=== PATIENT | male | born 1970 | race Caucasian/White ===

== ENCOUNTER 2016-11-28 07:05 | Emergency (ER) | payer BC ==
[2016-11-28] MEDS ORDERED: SODIUM CHLORIDE FLUSH 0.9% 10 ML SYRINGE IVP ONE (07:41)
[2016-11-28] MEDS ORDERED: SODIUM CHLORIDE 0.9% 1,000 ML IV ONE (07:43)
[2016-11-28] MEDS ORDERED: ONDANSETRON 4 MG/2 ML VIAL IVP STA (07:43)
[2016-11-28] MEDS ORDERED: HYDROmorphone 1 MG/ML SYRINGE IVP STA (07:43)
--- NOTE | 2016-11-28 07:48 | ED Physician Documentation ---
PD HPI ABD PAIN - Stated complaint Stated Complaint: ABD PX - Chief complaint Chief Complaint: Abd Pain - History obtained from History obtained from: Patient, Family - Additional information Additional information: Patient is a 46-year-old male who is otherwise healthy. He does have polyposis of the colon does get regular colonoscopies. This was discovered because of occasional episodes of rectal bleeding. He has not had any problems recently. He is here with a complaint of abdominal pain. Abdominal pain is been present since sometimes standing up makes it better. The pain comes and goes it is described as a sharp sensation which is kind of vague and more on the right and in the lower quadrant of the abdomen. On occasion he is felt nauseous and occasion he has pain that radiates into the right groin area. He has not had a fever chills. There is no chest pain or shortness of breath. He has had palpitations on a couple occasions. He has no complaints of diarrhea or lower urinary symptoms otherwise. He is otherwise healthy. Review of systems: For pertinent positive and negatives in the review of systems please see the history of present illness, otherwise all other systems have been reviewed and are negative. Dragon disclaimer: Parts of this medical record were created using voice recognition technology. Because of the inherent limitations of this system, occasional same sounding word substitutions do occur and persist despite proofreading. Please read the document for context. Review of Systems Constitutional: denies: Fever, Chills GI: reports: Abdominal Pain, Nausea. denies: Abdominal Swelling, Vomiting, Constipation, Diarrhea, Hematemesis, Bloody / black stool : denies: Dysuria, Frequency PD PAST MEDICAL HISTORY - Past Medical History Past Medical History: Yes GI: GERD - Past Surgical History Past Surgical History: Yes General: Cholecystectomy - Present Medications Home Medications: Ambulatory Orders Medication Instructions Recorded Confirmed Omeprazole 20 mg PO 06/05/14 06/05/14 - Allergies Allergies/Adverse Reactions: Allergies Allergy/AdvReac Type Severity Reaction Status Date / Time No Known Drug Allergies Allergy Verified 06/05/14 19:36 - Social History Does the pt smoke?: No Smoking Status: Never smoker Does the pt drink ETOH?: No Does the pt have substance abuse?: No - Immunizations Immunizations are current?: Yes - POLST Patient has POLST: No PD ED PE NORMAL - Vitals Vital signs reviewed: Yes - General General: Alert and oriented X 3, No acute distress, Well developed/nourished - HEENT HEENT: Atraumatic, PERRL, EOMI - Neck Neck: Supple, no meningeal sign, No bony TTP, No adenopathy - Cardiac Cardiac: RRR, No murmur, No gallop, No rub - Respiratory Respiratory: No respiratory distress, Clear bilaterally - Abdomen Abdomen: Normal bowel sounds, Non tender, Non distended, Other (Fairly benign abdominal examination minimal tenderness in the right lower quadrant. Bowel tones normal active no palpable hernias. No rebound tenderness. Aorta does not feel prominent) - Derm Derm: Normal color, Warm and dry, No rash - Extremities Extremities: No deformity, No tenderness to palpate, Normal ROM s pain, No edema - Neuro Neuro: Alert and oriented X 3, No motor deficit Results - Vitals Vitals: Vital Signs - 24 hr 11/28/16 11/28/16 11/28/16 07:05 08:04 09:23 Temperature 36.1 C L 36.3 C L 36.9 C Heart Rate 76 74 72 Respiratory 16 14 14 Rate Blood Pressure 164/109 H 144/104 H 151/96 H O2 Saturation 99 99 99 11/28/16 10:33 Temperature 36.2 C L Heart Rate 73 Respiratory 15 Rate Blood Pressure 150/94 H O2 Saturation 98 Oxygen O2 Source Room air - Labs Labs: Laboratory Tests 11/28/16 11/28/16 11/28/16 07:55 07:55 08:00 WBC 11.0 H RBC 4.77 Hgb 13.9 L Hct 41.5 L MCV 86.9 MCH 29.2 MCHC 33.6 RDW 12.9 Plt Count 272 MPV 7.9 Neut # 8.1 H Lymph # 2.0 [place] # 0.6 Eos # 0.1 Baso # 0.1 Absolute Nucleated RBC 0.00 Nucleated RBCs 0.0 Sodium 137 Potassium 3.7 Chloride 104 Carbon Dioxide 25 Anion Gap 8.0 BUN 13 Creatinine 0.8 Estimated GFR (MDRD) 104 Glucose 104 H Calcium 8.8 Total Bilirubin 1.8 H AST 17 ALT 15 Alkaline Phosphatase 69 Total Protein 7.6 Albumin 4.2 Globulin 3.4 Albumin/Globulin Ratio 1.2 Lipase 24 Urine Color YELLOW Urine Clarity CLEAR Urine pH 7.5 Ur Specific [place] 1.015 Urine Protein NEGATIVE Urine Glucose (UA) NEGATIVE Urine Ketones NEGATIVE Urine Occult Blood NEGATIVE Urine Nitrite NEGATIVE Urine Bilirubin NEGATIVE Urine Urobilinogen 0.2 (NORMAL) Ur Leukocyte Esterase NEGATIVE Ur Microscopic Review NOT INDICATED Urine Culture Comments NOT INDICATED PD MEDICAL DECISION MAKING - ED course Complexity details: reviewed old records, reviewed results, re-evaluated patient ED course: No definitive cause of this patient's abdominal pain was found. Blood work showed elevated bilirubin at 1.6 however there is no evidence of biliary or hepatic pathology. There is no other indication to suggest hemolysis. CT scan of his abdomen was unremarkable. The patient on recheck is doing well without any symptoms. His abdominal exam remains benign. I did look at his kidneys and gallbladder portably with ultrasound in the appeared normal and we did not see any additional abnormalities on CT scan either. At this point in time I am wrecking recommending increasing fiber, fluids, continued observation, follow- up with a physician and recheck bilirubin in 1-2 weeks. Disposition: To home Clinical impression: 1. Right middle and right lower quadrant abdominal pain cause unknown 2. Mild elevation of bilirubin without evidence of hepatic or biliary disease clinically or radiographically Departure - Departure Disposition: 01 Home, Self Care Clinical Impression: Abdominal pain Condition: Good Instructions: ED Abdominal Pain Unkn Cause Follow-Up: Jeff Wilson MD [Primary Care Provider] - Comments: No definite cause for your abdominal pain was found today. Your bilirubin was slightly elevated at 1.6 Mg/dL however there is no evidence of any liver or biliary disease. I do recommend increasing fluids adding additional fiber such as Metamucil for the next several days to see if this improves her symptoms. If not or if you get worse please return for reevaluation and please have your bilirubin checked and 1-2 weeks
[2016-11-28 08:04] LABS: BILIRUBIN,URINE NEGATIVE (NEGATIVE); PH,URINE 7.5 PH (5.0-7.5)
[2016-11-28 08:04] LABS: BASOPHILS # (AUTO) 0.1 10^3/uL (0.0-0.1); BASOPHILS % (AUTO) 1.2 %; EOSINOPHILS # (AUTO) 0.1 10^3/uL (0.0-0.7); EOSINOPHILS % (AUTO) 1.2 %; HCT - HEMATOCRIT 41.5 % (42.0-52.0); HGB - HEMOGLOBIN 13.9 g/dL (14.0-18.0); LYMPHOCYTES % (AUTO) 18.5 %; MEAN CORPUSCULAR HEMOGLOBIN 29.2 pg (27.0-31.0); MEAN CORPUSCULAR HGB CONC 33.6 g/dL (32.0-36.0); MEAN CORPUSCULAR VOLUME 86.9 fL (80.0-94.0); MEAN PLATELET VOLUME 7.9 fL (7.4-11.4); MONOCYTES # (AUTO) 0.6 10^3/uL (0.0-1.0); MONOCYTES % (AUTO) 5.7 %; NEUTROPHILS # (AUTO) 8.1 10^3/uL (1.5-6.6); NEUTROPHILS % (AUTO) 73.4 %; RED BLOOD COUNT 4.77 10^6/uL (4.70-6.10); RED CELL DISTRIBUTION WIDTH 12.9 % (12.0-15.0)
[2016-11-28 08:05] LABS: UA CHARGE (STRIP ONLY) YES; UR CULTURE IF IND NOT INDICATED
[2016-11-28 08:15] LABS: ALBUMIN/GLOBULIN RATIO 1.2 (1.0-2.2); BILIRUBIN,TOTAL 1.8 mg/dL (0.2-1.0); CALCIUM 8.8 mg/dL (8.5-10.3); CREATININE 0.8 mg/dL (0.6-1.2); POTASSIUM 3.7 mmol/L (3.5-5.0); TOTAL PROTEIN 7.6 g/dL (6.7-8.2)
[2016-11-28] MEDS ORDERED: IOPAMIDOL-300 100 ML VIAL IVP ONE (09:10)
--- NOTE | 2016-11-28 09:18 | CT Preliminary Report ---
Exam: CT Abdomen/Pelvis W/ IMPRESSION: 1. No acute focal inflammatory changes or evidence of obstruction identified within the abdomen or pe lvis. 2. Normal appendix. 3. Colonic diverticulosis. [facility] SITE ID: [id number]
--- NOTE | 2016-11-28 09:21 | CT Report ---
EXAM: CT ABDOMEN AND PELVIS EXAM DATE: 11/28/2016 09:11 AM. CLINICAL HISTORY: 3 days R sided ab pain now rmq, rlq tenderness. COMPARISONS: None. TECHNIQUE: Routine helical CT imaging was performed through the abdomen and pelvis. IV contrast: 100 mL Isovue-300. Enteric contrast: No. Reconstructions: Coronal and sagittal. In accordance with CT protocol optimization, one or more of the following dose reduction techniques w ere utilized for this exam: automated exposure control, adjustment of mA and/or KV based on patient s ize, or use of iterative reconstructive technique. FINDINGS: Lung Bases: Unremarkable. Liver: Normal. No masses. Gallbladder/Bile Ducts: Unremarkable. Spleen: Normal. Pancreas: Normal. Adrenal Glands: Normal. Kidneys: Normal. No masses or hydronephrosis. Peritoneal Cavity/Bowel: No bowel obstruction. Colonic diverticulosis. No acute focal inflammatory ch chevy. No discrete collection. No bulky adenopathy. No Free Air. No Free Fluid. Appendix Pancreas Unre markable. Pelvic Organs: Urinary bladder appears unremarkable. A few calcifications of the prostate. Vasculature: No aneurysms or other significant abnormality. Bones: No significant abnormality. Other: None. IMPRESSION: 1. No acute focal inflammatory changes or evidence of obstruction identified within the abdomen or pe lvis. 2. Normal appendix. 3. Colonic diverticulosis. [facility] Referring Provider Line: [phone] SITE ID: [id number]
[2016-11-28 10:34] VITALS: BP 150/94
== END 2016-11-28 10:40 | disposition home or self-care (01) ==
LOC: ED 07:05
DX: R10.31 Right lower quadrant pain (principal); R79.89 Other specified abnormal findings of blood chemistry
CPT/HCPCS: 36415; 74177; 80053; 81003; 83690; 85025; 93005; 96374; 96375; 99284; Q9967; 81001; 87086

== ENCOUNTER 2020-06-23 17:44 | Emergency (ER) | payer BC, OTHER ==
--- NOTE | 2020-06-23 18:08 | ED Physician Documentation ---
History of Present Illness - Stated complaint Stated Complaint: HBP - Chief complaint Chief Complaint: General - History obtained from History obtained from: Patient - Additonal information Additional information: 50-year-old gentleman presents by private vehicle for evaluation of high blood pressure and chest discomfort. He has had very mild discomfort under the left scapula all day today. He doesn't describe it as pain or pressure just very mild. Not associate with shortness of breath, sweats or headache. He went to see his value engineer for this and was noted to be hypertensive. He was also recently diagnosed with a retinal bleed by an instructor business education but no specific referrals or treatment was given. After seeing the value engineer they referred him here for evaluation of hypertension. He denies headaches, shortness of breath, pedal edema, urinary complaints. States that he last had his blood pressure checked maybe a year ago at that time it was "high normal" but he doesn't recommend recall the numbers. Review of Systems Ten Systems: 10 systems reviewed and negative Constitutional: denies: Fever, Chills Eyes: reports: Loss of vision, Decreased vision Cardiac: reports: Chest pain / pressure. denies: Palpitations Respiratory: denies: Dyspnea, Cough PD PAST MEDICAL HISTORY - Past Medical History GI: GERD - Past Surgical History Past Surgical History: Yes General: Cholecystectomy - Present Medications Home Medications: Ambulatory Orders Medication Instructions Recorded Confirmed Omeprazole 20 mg PO DAILY 06/05/14 06/23/20 Lisinopril [Prinivil] 10 mg PO DAILY #90 tablet 06/23/20 - Allergies Allergies/Adverse Reactions: Allergies Allergy/AdvReac Type Severity Reaction Status Date / Time No Known Drug Allergies Allergy Verified 06/05/14 19:36 - Social History Does the pt smoke?: No Smoking Status: Never smoker Does the pt drink ETOH?: No Does the pt have substance abuse?: No - Immunizations Immunizations are current?: Yes - POLST Patient has POLST: No PD ED PE NORMAL - Vitals Vital signs reviewed: Yes - General General: Alert and oriented X 3, No acute distress - HEENT HEENT: PERRL, EOMI - Neck Neck: Supple, no meningeal sign, No bony TTP - Cardiac Cardiac: RRR, No murmur - Respiratory Respiratory: No respiratory distress, Clear bilaterally - Abdomen Abdomen: Soft, Non tender - Back Back: No CVA TTP, No spinal TTP - Derm Derm: Normal color, Warm and dry - Extremities Extremities: No edema, No calf tenderness / cord - Neuro Neuro: Alert and oriented X 3, Normal speech Results - Vitals Vitals: Vital Signs - 24 hr 06/23/20 06/23/20 06/23/20 17:54 18:03 19:20 Temperature 37 C 36.4 C L 37.1 C Heart Rate 84 88 103 H Respiratory 18 14 22 Rate Blood Pressure 192/120 H 171/102 H 174/105 H O2 Saturation 99 100 100 Oxygen O2 Source Room air - EKG (time done) 1815 Rate: Rate (enter#) (77) Rhythm: NSR [place]: Normal Intervals: Normal IN QRS: Normal Ischemia: Normal ST segments - Labs Labs: Laboratory Tests 06/23/20 06/23/20 06/23/20 18:08 18:08 18:08 WBC 14.5 H RBC 5.04 Hgb 15.0 Hct 44.4 MCV 88.1 MCH 29.8 MCHC 33.8 RDW 12.4 Plt Count 319 MPV 9.5 Neut # (Auto) 12.1 H Lymph # (Auto) 1.4 L [place] # (Auto) 0.7 Eos # (Auto) 0.2 Baso # (Auto) 0.1 Absolute Nucleated RBC 0.00 Nucleated RBC % 0.0 Sodium 143 Potassium 3.8 Chloride 96 L Carbon Dioxide 26 Anion Gap 21.0 H BUN 11 Creatinine 0.9 Estimated GFR (MDRD) 89 Glucose 108 H Calcium 11.2 H Total Bilirubin 0.8 AST 22 ALT 25 Alkaline Phosphatase 76 Troponin I High Sens 4.1 Total Protein 8.1 Albumin 4.6 Globulin 3.5 Albumin/Globulin Ratio 1.3 Lipase 26 - Rads (name of study) 1v cxr Radiology: EMP read contemporaneously (normal) PD MEDICAL DECISION MAKING - ED course ED course: 50-year-old gentleman has very mild chest symptoms but elevated blood pressure at the value engineer office and he was referred here for this. No evidence of endorgan damage but he does have this retinal bleed which has been going on for about a week now. He was not referred to a retinal specialist and I have given him a number to call for that. Blood pressure remained elevated during his visit he was started on lisinopril and close follow-up was advised. Departure - Departure Disposition: Home, Self Care Clinical Impression: Essential hypertension, Chest discomfort Condition: Good Record reviewed to determine appropriate education?: Yes Instructions: ED Hypertension New Begin Tx Prescriptions: Lisinopril [Prinivil] 10 mg PO DAILY #90 tablet Comments: As discussed, for the retinal pathology, I would recommend following with a retinal specialist such as: [facility], [facility] Nilton Pineda MD [address] [place] [address] You need to follow-up with primary care towards the end of the week for blood pressure recheck and potential medication adjustment. Return if worsening. Discharge Date/Time: 06/23/20 20:11
[2020-06-23 18:14] LABS: BASOPHILS # (AUTO) 0.1 10^3/uL (0.0-0.1); BASOPHILS % (AUTO) 0.4 %; EOSINOPHILS # (AUTO) 0.2 10^3/uL (0.0-0.7); EOSINOPHILS % (AUTO) 1.2 %; HCT - HEMATOCRIT 44.4 % (42.0-52.0); LYMPHOCYTES # (AUTO) 1.4 10^3/uL (1.5-3.5); LYMPHOCYTES % (AUTO) 9.7 %; MEAN CORPUSCULAR HEMOGLOBIN 29.8 pg (27.0-31.0); MEAN CORPUSCULAR HGB CONC 33.8 g/dL (32.0-36.0); MEAN CORPUSCULAR VOLUME 88.1 fL (80.0-94.0); MEAN PLATELET VOLUME 9.5 fL (7.4-11.4); MONOCYTES # (AUTO) 0.7 10^3/uL (0.0-1.0); MONOCYTES % (AUTO) 4.6 %; NEUTROPHILS # (AUTO) 12.1 10^3/uL (1.5-6.6); NEUTROPHILS % (AUTO) 83.7 %; PLT - PLATELET COUNT 319 10^3/uL (130-450); RED BLOOD COUNT 5.04 10^6/uL (4.70-6.10); RED CELL DISTRIBUTION WIDTH 12.4 % (12.0-15.0); WHITE BLOOD COUNT 14.5 x10^3/uL (4.8-10.8)
--- NOTE | 2020-06-23 18:15 | XRAY Report ---
PROCEDURE: Chest 1 View X-Ray INDICATIONS: Chest Pain TECHNIQUE: One view of the chest was acquired. COMPARISON: CT abdomen and pelvis 11/28/2016. FINDINGS: Surgical changes and devices: None. Lungs and pleura: No pleural effusions or pneumothorax. Lungs are clear. Mediastinum: Mediastinal contours appear normal. Heart size is normal. Bones and chest wall: No suspicious bony lesions. Overlying soft tissues appear unremarkable. IMPRESSION: No acute cardiopulmonary abnormality. Reviewed by: Pa Mcdonald MD on 06/23/2020 6:14 PM PDT Approved by: Pa Mcdonald MD on 06/23/2020 6:14 PM PDT Station ID: [id number]
[2020-06-23 18:30] LABS: ALBUMIN 4.6 g/dL (3.2-5.5); ALBUMIN/GLOBULIN RATIO 1.3 (1.0-2.2); BILIRUBIN,TOTAL 0.8 mg/dL (0.2-1.0); CALCIUM 11.2 mg/dL (8.5-10.3); CREATININE 0.9 mg/dL (0.6-1.2); POTASSIUM 3.8 mmol/L (3.5-5.0); TOTAL PROTEIN 8.1 g/dL (6.7-8.2)
[2020-06-23] MEDS ORDERED: lisinopriL 5 MG TABLET PO STA (18:55)
[2020-06-23 19:24] VITALS: BP 174/105
--- OUTSIDE RECORDS SUMMARY | 2020-06-30 23:07 | EXTERNAL MEDICAL SUMMARY RPT | Continuity of Care Document ---
:1970 Demographics Phone Unavailable Preferred Language Unknown Marital Status Unknown Alevism Affiliation Unknown Race Unknown Ethnic Group Unknown Author Organization [facility] Address [address] [place] [address] Phone Social History date description facility [id number]
== END 2020-06-23 20:11 | disposition home or self-care (01) ==
LOC: ED 17:44
DX: I10 Essential (primary) hypertension (principal); R07.89 Other chest pain; K21.9 Gastro-esophageal reflux disease without esophagitis; H35.60 Retinal hemorrhage, unspecified eye
CPT/HCPCS: 36415; 71045; 80053; 83690; 84484; 85025; 93005; 99284; A9270

== ENCOUNTER 2020-06-30 09:03 | Outpatient (CLI) | payer OTHER ==
[2020-06-30 15:03] LABS: BASOPHILS # (AUTO) 0.1 10^3/uL (0.0-0.1); BASOPHILS % (AUTO) 1.1 %; EOSINOPHILS # (AUTO) 0.1 10^3/uL (0.0-0.7); EOSINOPHILS % (AUTO) 1.6 %; HCT - HEMATOCRIT 42.9 % (42.0-52.0); HGB - HEMOGLOBIN 13.6 g/dL (14.0-18.0); LYMPHOCYTES # (AUTO) 2.1 10^3/uL (1.5-3.5); LYMPHOCYTES % (AUTO) 33.8 %; MEAN CORPUSCULAR HEMOGLOBIN 28.7 pg (27.0-31.0); MEAN CORPUSCULAR HGB CONC 31.7 g/dL (32.0-36.0); MEAN CORPUSCULAR VOLUME 90.5 fL (80.0-94.0); MEAN PLATELET VOLUME 9.8 fL (7.4-11.4); MONOCYTES # (AUTO) 0.3 10^3/uL (0.0-1.0); MONOCYTES % (AUTO) 4.6 %; NEUTROPHILS # (AUTO) 3.7 10^3/uL (1.5-6.6); NEUTROPHILS % (AUTO) 58.6 %; PLT - PLATELET COUNT 338 10^3/uL (130-450); RED BLOOD COUNT 4.74 10^6/uL (4.70-6.10); RED CELL DISTRIBUTION WIDTH 12.6 % (12.0-15.0); WHITE BLOOD COUNT 6.3 x10^3/uL (4.8-10.8)
[2020-06-30 15:45] LABS: ALBUMIN 4.2 g/dL (3.2-5.5); ALBUMIN/GLOBULIN RATIO 1.3 (1.0-2.2); ALKALINE PHOSPHATASE 69 IU/L (42-121); ALT ALANINE AMINOTRANSFERASE 17 IU/L (10-60); AST ASPARTATE AMINOTRANSFERASE 16 IU/L (10-42); BILIRUBIN,TOTAL 1.6 mg/dL (0.2-1.0); BUN - BLOOD UREA NITROGEN 13 mg/dL (6-20); CARBON DIOXIDE - CO2 27 mmol/L (21-32); CHLORIDE 106 mmol/L (101-111); CHOL/HDL RATIO 4.5 (<5.0); CHOLESTEROL 163 mg/dL; CREATININE 0.9 mg/dL (0.6-1.2); GFR - MDRD 89 (>89); GLUCOSE 100 mg/dL (70-100); HDL CHOLESTEROL 36 mg/dL; LDL CHOLESTEROL,CALCULATED 104 mg/dL; LDL/HDL RATIO 2.9 (<3.6); POTASSIUM 3.6 mmol/L (3.5-5.0); PSA FREE 0.19 ng/mL (0.16-2.81); PSA TOTAL 0.682 ng/mL (0.000-2.000); SODIUM 139 mmol/L (135-145); TOTAL PROTEIN 7.4 g/dL (6.7-8.2); TRIGLYCERIDES 114 mg/dL; VLDL CHOLESTEROL 23 mg/dL
[2020-06-30 15:50] LABS: THYROID STIMULATING HORMONE 0.92 uIU/mL (0.34-5.60)
[2020-06-30 15:51] LABS: FREE T3 4.15 pg/mL (2.5-3.9)
[2020-06-30 15:52] LABS: FREE T4 (FREE THYROXINE) 1.15 ng/dL (0.58-1.64)
[2020-06-30 19:34] LABS: ESTIMATED AVERAGE GLUCOSE 108 mg/dL (70-100); HEMOGLOBIN A1c% 5.4 % (4.27-6.07)
== END 2020-06-30 09:04 | disposition home or self-care (01) ==
LOC: LAB.S 09:03
PROVIDERS: ATTEND Naprapath
DX: Z00.01 Encounter for general adult medical examination with abnormal findings (principal); Z13.1 Encounter for screening for diabetes mellitus; Z13.21 Encounter for screening for nutritional disorder; Z13.220 Encounter for screening for lipoid disorders; Z13.228 Encounter for screening for other metabolic disorders; Z13.29 Encounter for screening for other suspected endocrine disorder; Z13.0 Encounter for screening for diseases of the blood and blood-forming organs and certain disorders involving the immune mechanism; E55.9 Vitamin D deficiency, unspecified; Z13.820 Encounter for screening for osteoporosis; Z13.6 Encounter for screening for cardiovascular disorders; Z12.5 Encounter for screening for malignant neoplasm of prostate
CPT/HCPCS: 36415; 80053; 80061; 82306; 83036; 83721; 84153; 84154; 84439; 84443; 84481; 85025; 85379; 86141

== ENCOUNTER 2020-12-16 07:18 | Outpatient (CLI) | payer OTHER ==
[2020-12-16 14:19] LABS: CALCIUM 8.9 mg/dL (8.5-10.3); POTASSIUM 3.4 mmol/L (3.5-5.0)
== END 2020-12-16 07:19 | disposition home or self-care (01) ==
LOC: LAB.S 07:18
PROVIDERS: ATTEND Internal Medicine
DX: I10 Essential (primary) hypertension (principal)
CPT/HCPCS: 36415; 80048

== ENCOUNTER 2021-01-08 15:11 | Outpatient (CLI) | payer OTHER ==
[2021-01-08 15:41] VITALS: BP 158/98
--- NOTE | 2021-01-08 15:41 | SLEEP CARE CONSULTATION ---
Information from patient questionnaire entered by Marily Patel. I have reviewed and concur with the information entered by Marily Patel. This document represents the service I personally performed and the decisions made by me, Quyen Hendricks ARNP. History of Present Illness Service Date and Time: 01/08/2021 1511 Reason for Visit: New patient Chief Complaint: reports: Snoring, Observed pauses in breathing, Frequent awakenings at night. denies: Unrefreshed sleep Date of Onset: couple years Usual bedtime: 8813-2751 Time it takes to fall asleep: 1-5 minutes Snores at night: Yes Observed to quit breathing while asleep: Yes Sleeps alone due to snoring: No Number of times waking at night: 1-2, sometimes more Reasons for waking at night: reports: Bathroom Toss, Turn, or Twitch while sleeping: Yes Recalls having dreams: Yes Usually gets out of bed at: 1247-6322 Feels refreshed in the morning: Yes Morning headache: No Sleepy or fatigued during the day: Yes Ever fallen asleep while driving: No Takes day naps: No Dreams during day naps: No Prior sleep studies: No Additional HPI information: I had the pleasure of seeing CANDY ORTIZ today regarding the possibility of him having a sleep disorder. His current complaints are snoring and frequent night awakenings. He has come in due to snoring and his high blood pressure. His snoring is keeping his up. She will leave room if not able to return to sleep due to his snoring. His has told him in the past that he has pauses in breathing when asleep. He gets the most tired in the late afternoon. He will wake up feeling rested in the morning, considers himself a morning person. He does not drink coffee in the morning to get him going. He has hypertension. They just changed his medication about 6 weeks ago to try to control it better. - Parasomnia Symptoms Ever been unable to move upon waking from sleep: No Walks in sleep: No Talks in sleep: Yes Ever acted out dreams in sleep: No Ever felt weak in the knees when startled or emotional: No Bothered by creepy, crawly, restless sensations in legs: Yes (at first when he lays down to sleep, mostly left side; not every night) Problems with memory or concentration: No Subjective Initial [place] Sleepiness Scale score: 9 (in 2020) Past Medical History Past Medical History: reports: Hypertension, GERD Social History The patient's occupation is a TEACHER. Patient is and lives in [place]. Have you smoked in the past 12 months: No Alcohol use: No Caffeine use: Yes Caffeine amount and frequency: 1-2 times daily, soda and black tea Family History Family history of sleep disordered breathing: No Allergies and Home Medications Drug allergies reviewed: Yes (NKDA) Home medication list reviewed: Yes Allergy and home medication list: Amlodipine Losartan Omeprazole Review of Systems Weight gain over past 5 years: 5 Cardiovascular: reports: high blood pressure Gastrointestinal: reports: heartburn Neurological: denies: headaches, seizure, head trauma Psychiatric: denies: anxiety, depression Ear/Nose/Throat: denies: sinus problems, injury to nose, tonsillectomy, wisdom teeth removed (has 3 of them) Endocrine: reports: increased urination Immunologic: denies: allergies to food or environment Physical Exam Blood Pressure: 158/98 (left) Cuff size: wrist Heart Rate: 85 O2 Saturation: 99 Height: 5 ft 10 in Weight: 221 lb Body Mass Index: 31.7 BMI Classification: Obese Neck circumference: 17 (inches) Mouth and throat: narrow oropharynx Soft palate: long Hard palate: normal Uvula: normal Uvula visualization: 50% Mallampati Class II Tongue: enlarged in size with teeth barth on lateral edges Tonsils: 1+ Neck: normal w/o lymphadenopathy or thyromegaly Heart: regular rate and rhythm Lungs: clear bilaterally Impression and Plan 1. Suspected Obstructive Sleep Apnea-Hypopnea Syndrome, as suggested by a history of loud and irregular snoring, observed cessation of breath while asleep, and frequent awakening during the night. Narrow oropharynx and obesity are common predisposing factors for obstructive sleep apnea-hypopnea syndrome. I recommend proceeding to polysomnography to confirm the diagnosis and to assess severity. If the patient has significant sleep disordered breathing, a manual CPAP titration study will also be performed to find the optimal treatment pressure. I informed the patient of what the sleep studies involve and after some discussion, obtained agreement to proceed. The pathophysiology of obstructive sleep apnea-hypopnea syndrome was discussed with the patient and health risks of cardiovascular and cerebrovascular disease if not treated. AASM brochure for obstructive sleep apnea-hypopnea syndrome given and reviewed. Risks of drowsy driving discussed in detail and patient advised to avoid long distance driving and to lung puller at the first sign of drowsiness. Patient agreed to plan. 2. Elevated blood pressure on patient with hypertension. His blood pressure today was 158/98. He denied chest pain or shortness of breath. He denied headaches. He is on Amlodipine and Losartan for his elevated blood pressure. He is follow up with his PCP for this issue. * Schedule polysomnography +- manual CPAP titration study and return in 1-2 weeks after the study to discuss result and initiate therapy. * Avoid long distance driving or driving when feeling sleepy. * Avoid sedative and muscle relaxant around bedtime. * Attempt to lose weight. * Review instructions provided by trained office staff on how to prepare for the sleep study. * Return for follow-up after sleep study completed. Counseling Topics: Weight loss health impact Visit Type: In Office Time Spent with Patient (minutes): 30 Provider Statement: I spent 100% of the Face to Face Visit with the patient with greater than 50% spent counseling the patient and coordination of care.
== END 2021-01-08 15:12 | disposition home or self-care (01) ==
LOC: SC 15:11
PROVIDERS: ATTEND Nurse Practitioner Family
DX: G47.9 Sleep disorder, unspecified (principal); R06.83 Snoring; I10 Essential (primary) hypertension
CPT/HCPCS: 99203; 99212

== ENCOUNTER 2021-01-21 15:54 | Outpatient (CLI) | payer OTHER | END 2021-01-21 15:55 | disposition home or self-care (01) | LOC: SC 15:54 | PROVIDERS: ATTEND Nurse Practitioner Family | DX: G47.33 Obstructive sleep apnea (adult) (pediatric) (principal); R09.02 Hypoxemia | CPT/HCPCS: 95806 ==

== ENCOUNTER 2021-02-04 13:03 | Outpatient (CLI) | payer OTHER ==
--- NOTE | 2021-02-04 13:44 | SLEEP CARE CONSULTATION ---
Information from patient questionnaire entered by Fuad Del Valle MA. I have reviewed and concur with the information entered by Fuad Del Valle MA. This document represents the service I personally performed and the decisions made by , Quyen Hendricks ARNP. History of Present Illness Service Date and Time: 02/04/2021 1303 Initial [place] Sleepiness Scale score: 9 (in 2020) Current [place] Sleepiness Scale score: 7 Additional HPI information: CANDY ORTIZ returns for follow up and results of the recently performed home sleep study. I explained the pathophysiology behind obstructive sleep apnea. We then spent quite a bit of time discussing different treatment options. For mild obstructive sleep apnea, surgery and oral appliance are alternatives to nasal CPAP therapy but in moderate or severe cases, nasal CPAP is the most effective and reliable treatment. Because apnea is primarily in supine position, then positional management therapy could be effective. Methods discussed such as positioning with pillows, using a T-shirt with tennis balls in the back, and shown commercial products that have a pillow format on back to prevent supine sleep. I reviewed the impact of weight changes on sleep apnea and strongly recommended losing weight. After some discussion, the patient opted to go with the nasal CPAP therapy. Nasal autoCPAP set at 4-15 cmH20 will be ordered with rationale explained. A manual titration study will be ordered if unable to find optimal pressure with office adjustments. I explained how CPAP machine works with sample devices Respironics Dreamstation and ResBooktrack [id number] and what to expect when using the machine. Using CPAP every night in order to get used to it was emphasized. Patient advised to put CPAP mask on before getting into bed so as not to fall asleep without CPAP. To assist acclimation to CPAP use, it could also be used for a short time during day while reading or watching TV. The patient was instructed to call the CPAP supplier to discuss any mechanical problem that may occur. If the mask given is uncomfortable or is difficult to keep on through the night even with adjustment, contact the CPAP supplier as many will replace with another mask style if notified before 30 days. If snoring or perceives is not getting enough air or too much air from the machine, notify this office. AAS patient education PAP tips reviewed and given to patient. Patient does not drink alcohol. Patient was cautioned about risks of drowsy driving until sleepiness symptoms resolve. Sleep Study - Results Type of Sleep Study: Home sleep study Prior sleep studies: No Polysomnography/Home Sleep Study results: Physician Impression: The quality of the study is good. The length of the study is adequate (> 240 minutes). Please also see the tabulated and graphic data. 1. Obstructive Sleep Apnea-Hypopnea (ICD-10 G47.33), mild, with an AHI of 9.8/hr and hemant SaO2 of 85%. During the study, the patient had 17 apneas (17 obstructive, 0 central, 0 mixed) and 59 hypopneas. The longest episode lasted 91.5 seconds. The respiratory events occurred almost exclusively during supine sleep (supine AHI was 23.5 and non-supine, 4.65). 2. Hypoxemia (ICD-10 R09.02), mild, with the lowest oxygen saturation of 85 % and 1.5 minutes with SaO2 under 90%. Baseline oxygen saturation was normal (Average oxygen saturation was 94%). Allergies and Home Medications Home medication list reviewed: Yes (no changes) Review of Systems Review of systems same as previous: Yes (no changes) Physical Exam Vital signs obtained and entered by: VIGNESH Del Valle Blood Pressure: 122/78 (left) Cuff size: wrist Heart Rate: 71 O2 Saturation: 98 Height: 5 ft 10 in Weight: 215 lb Body Mass Index: 30.8 BMI Classification: Obese Impression and Plan 1. Obstructive Sleep Apnea-Hypopnea Syndrome, mild, with lowest oxygen saturation of 85%. Obviously this is the cause of the patients symptoms of un refreshed sleep, and excessive daytime sleepiness. Positive pressure therapy could benefit hypertension and gastric reflux. As mentioned above, the patient will be started on nasal autoCPAP therapy with pressure set at 4-15 cmH2O. A manual titration study will be completed if unable to find optimal treatment pressure with office adjustments. Compliance guidelines also reviewed. A copy of compliance guidelines will be given for reference at check out. Because the apnea is more severe supine, I instructed to avoid sleeping supine using pillow positioning until able to start CPAP use. 2. Hypoxemia, mild, with the lowest oxygen saturation of 85 % and 1.5 minutes with SaO2 under 90%. His baseline oxygen saturation was normal with an average oxygen saturation of 94%. * Nasal auto CPAP therapy, pressure at 4-15 cm H2O. * Attempt to lose weight. * Avoid alcohol consumption near bedtime. * Avoid supine sleep until using CPAP. * The patient is again cautioned about driving until sleepiness completely resolves. * Return one month after CPAP obtained. I will assess response to therapy and compliance at that time. Counseling Topics: Weight loss health impact Visit Type: In Office Time Spent with Patient (minutes): 22 Provider Statement: I spent 100% of the Face to Face Visit with the patient with greater than 50% spent counseling the patient and coordination of care.
[2021-02-04 13:45] VITALS: BP 122/78
== END 2021-02-04 13:04 | disposition home or self-care (01) ==
LOC: SC 13:03
PROVIDERS: ATTEND Nurse Practitioner Family
DX: G47.33 Obstructive sleep apnea (adult) (pediatric) (principal); R09.02 Hypoxemia; E66.9 Obesity, unspecified; Z68.30 Body mass index [BMI] 30.0-30.9, adult
CPT/HCPCS: 99212; 99213

== ENCOUNTER 2021-07-13 07:59 | Outpatient (CLI) | payer OTHER ==
[2021-07-13 20:22] LABS: POTASSIUM 3.5 mmol/L (3.5-5.0)
== END 2021-07-13 08:00 | disposition home or self-care (01) ==
LOC: LAB.S 07:59
PROVIDERS: ATTEND Internal Medicine
DX: I10 Essential (primary) hypertension (principal)
CPT/HCPCS: 36415; 80048

== ENCOUNTER 2021-08-12 15:53 | Outpatient (CLI) | payer OTHER ==
[2021-08-12 16:31] VITALS: BP 132/77
--- NOTE | 2021-08-12 16:31 | SLEEP CARE CONSULTATION ---
Information from patient questionnaire entered by Fuad Del Valle MA. I have reviewed and concur with the information entered by Fuad Del Valle MA. This document represents the service I personally performed and the decisions made by , Quyen Hendricks ARNP. History of Present Illness Service Date and Time: 08/12/2021 1553 Previous diagnosis: Mild, Obstructive Sleep Apnea-Hypopnea Syndrome AHI: 9.8 Reason for follow up: first compliance (SET UP DATE 06/11/21, [employer], ) Equipment type: CPAP Equipment obtained from: [employer] (got initial supplies) Mask style: Nasal Backup mask available: Yes (other mask) Last cushion change: 3 weeks Prior sleep studies: No Type of Sleep Study: Home sleep study HPI additional information: CANDY ORTIZ was diagnosed to have mild, AHI 9.8, obstructive sleep apnea- hypopnea syndrome and returned today for CPAP therapy first compliance follow- up. Sleep Study - Results Type of Sleep Study: Home sleep study Prior sleep studies: No CPAP Compliance Data - Data Reviewed with Patient Average duration of nightly device use: 4 HOURS 30 MINUTES Compliance rate %: 73 (60 days; 30 days 80% /) Current pressure setting (cmH2O): 4-15 (median 6.7, avg 9.7 and max 11.0) Average residual AHI: 0.8 Central apnea: .1 Obstructive apnea: .3 Average large leak: 6.9 Subjective Missed days of use due to: reports: travel, other (may not put back on after getting up at night) Patient concerns: reports: nasal congestion (little bit one side), other (cavities - starting gel toothpaste to put on at night). denies: aerophagia, mask discomfort, air blowing in eyes, mask leak noise, condensation in mask/hose, dry mouth, nose, throat, epistaxis Observed to snore while using device: No Current pressure setting perceived as: comfortable On therapy, patient: reports: awakening more refreshed, being more awake and alert during the day, more rested overall. denies: drowsiness while driving Initial [place] Sleepiness Scale score: 9 (in 2020) Current [place] Sleepiness Scale score: 7 (07/2021) Allergies and Home Medications Known drug allergies: No Drug allergies reviewed: Yes Home medication list reviewed: Yes (Losartan combo 100 mg; Amlodipine 5 mg) Allergy and home medication list: Allergies No Known Drug Allergies Allergy (Verified 06/05/14 19:36) Review of Systems Review of systems same as previous: No (getting cavities per dentist) Physical Exam Vital signs obtained and entered by: MARGARITA SLOAN Blood Pressure: 132/77 (resp 16, pulse 72, right, ) Cuff size: wrist Heart Rate: 72 O2 Saturation: 98 (n94) Height: 5 ft 10 in Weight: 220 lb Body Mass Index: 31.5 BMI Classification: Obese Impression and Plan 1. Obstructive Sleep Apnea-Hypopnea Syndrome, mild, with good treatment compliance and excellent apnea control. On CPAP therapy, the patient has better sleep quality and is more rested overall. He states he saw his dentist who told him he had more cavities developing in his back teeth and they felt it was due to the CPAP. I explained that oral dryness can lead to dental problems. He was given a gel to put on teeth at night and he is using this nightly for this. He has been having some nasal congestion in the middle of the night limiting his ability to wear the mask. He changed from a nasal pillows mask to a nasal cushion and likes it a lot better. Nasal congestion can be reduced with increasing the CPAP humidity as shown on sample device. The heated hose can be adjusted higher if condensation with higher humidity setting. In addition, I gave the patient a few samples of Mayra Ease nasal cream to be used 4 times a day for 7-10 days and then as needed. Verbal instructions given on how to change humidity and heated hose settings with rationale explaining why to change. He voiced understanding. The patients pressure will be changed to autoCPAP 8-11 cmH20 to reflect the pressures being used. Patient advised to contact me if p ressure change is uncomfortable so that it can be adjusted. Goals for apnea control discussed. Patient's apnea severity and rationale for treatment to reduce apnea, improve sleep quality and reduce cardiovascular and cerebrovascular events was reviewed. I also reviewed the benefit of consistent device use of CPAP for hypertension and gastric reflux. Patient's BMI is 31.5 and he was encouraged to try to lose weight. * Change auto CPAP pressure to 8-11 cmH2O * Notify me if snoring with mask or feeling that the pressure is too much or too little * Attempt to lose weight * Call this office if any problems using CPAP * Return for follow up in 1-2 months, or sooner if concerns arise Counseling Topics: Spare mask, Weight loss health impact Visit Type: In Office Time Spent with Patient (minutes): 22 Provider Statement: I spent 100% of the Face to Face Visit with the patient with greater than 50% spent counseling the patient and coordination of care.
== END 2021-08-12 15:54 | disposition home or self-care (01) ==
LOC: SC 15:53
PROVIDERS: ATTEND Nurse Practitioner Family
DX: G47.33 Obstructive sleep apnea (adult) (pediatric) (principal); E66.9 Obesity, unspecified; Z68.31 Body mass index [BMI] 31.0-31.9, adult
CPT/HCPCS: 99212; 99213

== ENCOUNTER 2022-01-11 15:50 | Outpatient (CLI) | payer OTHER ==
[2022-01-11 16:27] VITALS: BP 134/92
--- NOTE | 2022-01-11 16:27 | SLEEP CARE CONSULTATION ---
Information from patient questionnaire entered by Michelle Rodriguez. I have reviewed and concur with the information entered by Michelle Rodriguez. This document represents the service I personally performed and the decisions made by me, Quyen Hendricks ARNP. History of Present Illness Service Date and Time: 01/11/2022 1550 Previous diagnosis: Mild, Obstructive Sleep Apnea-Hypopnea Syndrome AHI: 9.8 Reason for follow up: three month (F/U PRESSURE CHANGE RESMED) Equipment type: CPAP (ResMed Airsense 11) Equipment obtained from: [employer] (getting supplies as needed) Mask style: Nasal Backup mask available: Yes (other mask) Last cushion change: last week Prior sleep studies: No Type of Sleep Study: Home sleep study HPI additional information: CANDY ORTIZ was diagnosed to have mild, AHI 9.8, obstructive sleep apnea- hypopnea syndrome and returned today for CPAP therapy three month follow-up. Sleep Study - Results Type of Sleep Study: Home sleep study Prior sleep studies: No CPAP Compliance Data - Data Reviewed with Patient Average duration of nightly device use: 5 hrs 42 min Compliance rate %: 87 (12/11/2021-01/09/2022; 29/30 days used) Current pressure setting (cmH2O): 7-9.6 Average residual AHI: 0.8 Central apnea: 0.1 Obstructive apnea: 0.2 Compliance data discussion: Issues with data not being updated by other machine was resolved with getting a new Airsense 11 by [employer]. Subjective Patient concerns: denies: aerophagia, mask discomfort, air blowing in eyes, mask leak noise, condensation in mask/hose, nasal congestion, dry mouth, nose, throat, epistaxis Observed to snore while using device: No Current pressure setting perceived as: comfortable On therapy, patient: reports: sleeping better, awakening more refreshed, being more awake and alert during the day, more rested overall. denies: drowsiness while driving Initial [place] Sleepiness Scale score: 9 (in 2020) Current [place] Sleepiness Scale score: 4 (01/11/2022) Allergies and Home Medications Drug allergies reviewed: Yes (NKDA) Home medication list reviewed: Yes (no changes) Review of Systems Review of systems same as previous: Yes (no changes) Physical Exam Vital signs obtained and entered by: MICHELLE Thompson MA Blood Pressure: 134/92 (Left Arm) Cuff size: regular Heart Rate: 70 O2 Saturation: 99 Height: 5 ft 10 in Weight: 228 lb 14.4 oz Body Mass Index: 32.8 BMI Classification: Obese Impression and Plan 1. Obstructive Sleep Apnea-Hypopnea Syndrome, mild, with good treatment compliance and good apnea control. On CPAP therapy, the patient has better sleep quality and is more rested overall. Patient was given a replacement device for the other CPAP that was not logging data correctly. He is very happy with the change. Patient has significant improvement of their sleep apnea and are sat isfied with current CPAP therapy. Patient denies problems with oral dryness, nasal congestion, epistaxis, skin irritation or aerophagia. Patient's apnea severity and rationale for treatment to reduce apnea, improve sleep quality and reduce cardiovascular and cerebrovascular events was reviewed. I also reviewed the benefit of consistent device use of CPAP for hypertension and gastric reflux. 2. Obesity, unspecified. Currently patients BMI is 32.8. Obesity increases the risk of apnea, CPAP pressure requirements and overall health risks especially cardiovascular and diabetes. Thus patient is advised to lose weight. * Continue auto CPAP pressure at 7-9.6 cmH2O * Notify me if snoring with mask or feeling that the pressure is too much or too little * Attempt to lose weight * Call this office if any problems using CPAP * Return for follow up in 6 months, or sooner if concerns arise Counseling Topics: Spare mask, Weight loss health impact Visit Type: In Office Time Spent with Patient (minutes): 14 Provider Statement: I spent 100% of the Face to Face Visit with the patient with greater than 50% spent counseling the patient and coordination of care.
== END 2022-01-11 15:51 | disposition home or self-care (01) ==
LOC: SC 15:50
PROVIDERS: ATTEND Nurse Practitioner Family
DX: G47.33 Obstructive sleep apnea (adult) (pediatric) (principal); E66.9 Obesity, unspecified; Z68.32 Body mass index [BMI] 32.0-32.9, adult
CPT/HCPCS: 99212

== ENCOUNTER 2022-03-23 07:00 | Outpatient (CLI) | payer OTHER ==
[2022-03-23 16:53] LABS: BILIRUBIN,URINE NEGATIVE (NEGATIVE); GLUCOSE, URINE (UA) NEGATIVE (NEGATIVE); KETONES,URINE (UA) NEGATIVE (NEGATIVE); LEUKOCYTE ESTERASE, URINE NEGATIVE (NEGATIVE); NITRITE,URINE NEGATIVE (NEGATIVE); OCCULT BLOOD,URINE MODERATE (NEGATIVE); PROTEIN,URINE NEGATIVE (NEGATIVE); UROBILINOGEN,URINE 0.2 (NORMAL) E.U./dL (NORMAL)
[2022-03-23 16:56] LABS: CLARITY,URINE CLOUDY (CLEAR)
[2022-03-23 17:16] LABS: AMORPHOUS SEDIMENT,UR Moderate /LPF; BACTERIA,URINE None Seen /HPF (None Seen); CRYSTALS,URINE 6-10 Ammonium Urate /LPF; RBC,URINE 0-5 /HPF (0-5); SQUAMOUS EPITHELIAL CELL,UR NONE SEEN (<= Few); WBC,URINE 0-3 /HPF (0-3)
[2022-03-24 05:09] LABS: ADENOVIRUS F 40/41 Not Detected (Not Detected); ASTROVIRUS Not Detected (Not Detected); C DIFFICILE TOXIN A/B Detected (Not Detected); CAMPYLOBACTER Not Detected (Not Detected); CRYPTOSPORIDIUM Not Detected (Not Detected); CYCLOSPORA CAYETANENSIS Not Detected (Not Detected); ENTAMOEBA HISTOLYTICA Not Detected (Not Detected); ENTEROAGGREGATIVE E COLI Not Detected (Not Detected); ENTEROPATHOGENIC E COLI Not Detected (Not Detected); ENTEROTOXIGENIC E COLI Not Detected (Not Detected); GIARDIA LAMBLIA Not Detected (Not Detected); NOROVIRUS GI/GII Not Detected (Not Detected); PLESIOMONAS SHIGELLOIDES Not Detected (Not Detected); ROTAVIRUS A Not Detected (Not Detected); SALMONELLA Not Detected (Not Detected); SAPOVIRUS Not Detected (Not Detected); SHIGA-TOXIN-PRODUCING E COLI Not Detected (Not Detected); SHIGELLA/ENTEROINVASIVE E COLI Not Detected (Not Detected); VIBRIO Not Detected (Not Detected); VIBRIO CHOLERAE Not Detected (Not Detected); YERSINIA ENTEROCOLITICA Not Detected (Not Detected)
== END 2022-03-23 23:59 | disposition home or self-care (01) ==
LOC: LAB.S 07:00
PROVIDERS: ATTEND Emergency Medicine
DX: A04.72 Enterocolitis due to Clostridium difficile, not specified as recurrent (principal); R10.30 Lower abdominal pain, unspecified
CPT/HCPCS: 81001; 87086; 87493; 87507

== ENCOUNTER 2022-09-30 11:08 | Outpatient (CLI) | payer OTHER ==
--- NOTE | 2022-09-30 11:48 | Sleep Patient Instructions ---
Sleep Center Visit Summary - Patient Visit Information Reason for Visit: 9 month followup for PAP therapy - Patient Instructions Additional Instructions: You were here for follow up of CPAP therapy. You will be continued on CPAP therapy with pressure at 7-9.6 cmH2O. A prescription for your supplies will be sent to your DME supplier. You should follow up with sleep care in 12 months. You may contact us sooner for any questions or concerns. - Clinic Information Contact: [facility] [address] [place] [address] [email or web address] T: [phone]
--- NOTE | 2022-09-30 11:52 | SLEEP CARE CONSULTATION ---
Information from patient questionnaire entered by Michelle Rodriguez. I have reviewed and concur with the information entered by Michelle Rodriguez. This document represents the service I personally performed and the decisions made by , Quyen Hendricks ARNP. History of Present Illness Service Date and Time: 09/30/2022 1108 Previous diagnosis: Mild, Obstructive Sleep Apnea-Hypopnea Syndrome AHI: 9.8 Reason for follow up: other (9MONTH F/U ) Equipment type: CPAP (ResMed Airsense 11, 05/2021) Equipment obtained from: [employer] (getting supplies as needed) Mask style: Nasal Mask brand: Resmed (Airfit [id number]) Backup mask available: Yes (old mask) Last cushion change: couple weeks Prior sleep studies: No Type of Sleep Study: Home sleep study HPI additional information: CANDY ORTIZ was diagnosed to have mild, AHI 9.8, obstructive sleep apnea- hypopnea syndrome and returned today for CPAP therapy 9 month follow-up. Sleep Study - Results Type of Sleep Study: Home sleep study Prior sleep studies: No CPAP Compliance Data - Data Reviewed with Patient Average duration of nightly device use: 5 HRS 56 MINS Compliance rate %: 94 (04/01/22-09/27/22; 180/180 days used) Current pressure setting (cmH2O): 7-9.6 Average residual AHI: 0.9 Central apnea: 0.2 Obstructive apnea: 0.1 Average large leak: 0 l/min Subjective Patient concerns: denies: aerophagia, mask discomfort, air blowing in eyes, mask leak noise, condensation in mask/hose, nasal congestion, dry mouth, nose, throat, epistaxis Observed to snore while using device: No Current pressure setting perceived as: comfortable On therapy, patient: reports: sleeping better, awakening more refreshed, being more awake and alert during the day, more rested overall. denies: drowsiness while driving Initial [place] Sleepiness Scale score: 9 (in 2020) Current [place] Sleepiness Scale score: 7 (09/30/22) Allergies and Home Medications Known drug allergies: No Drug allergies reviewed: Yes Home medication list reviewed: Yes (no changes) Allergy and home medication list: Allergies No Known Drug Allergies Allergy (Verified 09/29/22 09:19) Review of Systems Review of systems same as previous: Yes (no changes) Physical Exam Vital signs obtained and entered by: MICHELLE Thompson MA Blood Pressure: 124/78 (LEFT ARM) Cuff size: regular Heart Rate: 78 O2 Saturation: 99 Height: 5 ft 10 in Weight: 240 lb 12.8 oz Body Mass Index: 34.5 BMI Classification: Obese Impression and Plan 1. Obstructive Sleep Apnea-Hypopnea Syndrome, mild, with good treatment compliance and good apnea control. On CPAP therapy, the patient has better sleep quality and is more rested overall. Patient had a lot of questions about alternate treatments for his sleep apnea. I reviewed with him that other modalities included: an oral appliance, surgery and Inspire implant therapy. He states he will continue with the CPAP at this time. Patient has significant improvement of their sleep apnea and is satisfied with current CPAP therapy. Patient denies problems with oral dryness, nasal congestion, epistaxis, skin irritation or aerophagia. Patient's apnea severity and rationale for treatment to reduce apnea, improve sleep quality and reduce cardiovascular and cerebrovascular events was reviewed. I also reviewed the benefit of consistent device use of CPAP for hypertension and gastric reflux. 2. Obesity, unspecified. Currently patients BMI is 34.5. Obesity increases the risk of apnea, CPAP pressure requirements and overall health risks especially cardiovascular and diabetes. Thus patient is advised to lose weight. * Continue auto CPAP pressure at 7-9.6 cmH2O * Update supplies * Notify me if snoring with mask or feeling that the pressure is too much or too little * Attempt to lose weight * Call this office if any problems using CPAP * Return for follow up in 1 year, or sooner if concerns arise * Counseling Topics: Spare mask, Weight loss health impact Visit Type: In Office Time Spent with Patient (minutes): 21 Provider Statement: I spent 100% of the Face to Face Visit with the patient with greater than 50% spent counseling the patient and coordination of care.
[2022-09-30 11:56] VITALS: BP 124/78
== END 2022-09-30 11:09 | disposition home or self-care (01) ==
LOC: SC 11:08
PROVIDERS: ATTEND Nurse Practitioner Family
DX: G47.33 Obstructive sleep apnea (adult) (pediatric) (principal); E66.9 Obesity, unspecified; Z68.34 Body mass index [BMI] 34.0-34.9, adult
CPT/HCPCS: 99212; 99213

== ENCOUNTER 2023-02-20 07:29 | Outpatient (CLI) | payer OTHER ==
[2023-02-20 15:56] LABS: ESTIMATED AVERAGE GLUCOSE 111 mg/dL (70-100); HEMOGLOBIN A1c% 5.5 % (4.27-6.07)
[2023-02-20 16:10] LABS: BUN - BLOOD UREA NITROGEN 20 mg/dL (6-20); CALCIUM 9.5 mg/dL (8.5-10.3); CARBON DIOXIDE - CO2 29 mmol/L (21-32); CHLORIDE 103 mmol/L (101-111); CHOL/HDL RATIO 5.2 (<5.0); CHOLESTEROL 188 mg/dL; GFR - MDRD 78 (>89); GLUCOSE 102 mg/dL (74-104); HDL CHOLESTEROL 36 mg/dL; LDL CHOLESTEROL,CALCULATED 114 mg/dL; LDL/HDL RATIO 3.2 (<3.6); POTASSIUM 3.9 mmol/L (3.5-4.5); SODIUM 136 mmol/L (135-145); TRIGLYCERIDES 189 mg/dL (48-352); VLDL CHOLESTEROL 38 mg/dL
== END 2023-02-20 07:30 | disposition home or self-care (01) ==
LOC: LAB.S 07:29
PROVIDERS: ATTEND Internal Medicine
DX: I10 Essential (primary) hypertension (principal); E78.5 Hyperlipidemia, unspecified; R73.01 Impaired fasting glucose
CPT/HCPCS: 36415; 80048; 80061; 83036; 83721